=== PATIENT | female | born 1975 | race Caucasian/White ===

== ENCOUNTER 2017-01-26 16:40 | Emergency (ER) | payer OTHER | END 2017-01-26 18:30 | disposition home or self-care (01) | LOC: ER1 16:40 | DX: S61.451A Open bite of right hand, initial encounter (principal); W50.3XXA Accidental bite by another person, initial encounter; Y93.F9 Activity, other caregiving; Y99.0 Civilian activity done for income or pay; Z79.899 Other long term (current) drug therapy | CPT/HCPCS: 36415; 80074; 86706; 90471; 90715; 99283 ==

== ENCOUNTER 2020-09-15 18:44 | Inpatient (IN) | payer OTHER ==
[~2020-09-15] VITALS: Ht 172.7 cm; Wt 95.3 kg
[~2020-09-15 18:44] MED LIST: NAPROSYN500 MG PO
[2020-09-15 19:36] LABS: HEMOGLOBIN 13.4 gm/dl (12.3-15.3); RED BLOOD COUNT 4.99 M/UL (4.00-5.10); WHITE BLOOD COUNT 9.3 K/UL (4.5-11.0)
[2020-09-15 20:20] LABS: BUN/CREATININE RATIO 31 (0-10)
[2020-09-15] MEDS ORDERED: BASAGLAR K100 UNIT/1 SQ (23:38)
[2020-09-15] MEDS ORDERED: LYRICA150 MG PO (23:38)
[2020-09-15] MEDS ORDERED: CYMBALTA60 MG PO (23:38)
[2020-09-17 02:19] LABS: HEMOGLOBIN 12.9 gm/dl (12.3-15.3); RED BLOOD COUNT 4.75 M/UL (4.00-5.10); WHITE BLOOD COUNT 9.3 K/UL (4.5-11.0)
[2020-09-17 02:59] LABS: BUN/CREATININE RATIO 27 (0-10)
--- NOTE | 2020-09-17 08:38 | NUR ---
SPOKE WITH DR KIRBY REGARDING PATIENT STATES SHE HAD SOME CHEST DISCOMFORT DURING THE NIGHT AND IS AVOIDING TAKING A DEEP BREATHE BECAUSE IT HURTS SO BAD. DILAUDID GIVEN FOR PAIN REQUESTED AND MD ORDERED ISORSOBIDE MONO 30 MG DAILY. MD STATES SHE WILL BE HERE SHORTLY TO SPEAK WITH THE PATIENT, PATIENT MADE AWARE. PATIENT STATES SHE IS NOT HAVING ANY CHEST DISCOMFORT AT THIS TIME BUT CONTINUES TO AVOID TAKING A DEEP BREATHE BECAUSE IT DOES HURT WHEN SHE DOES THIS. NO SIGNS OF DISTRESS AT THIS TIME WILL CONTINUE TO MONITOR.
[2020-09-17] MEDS ORDERED: ASPIRIN EC81 MG PO (10:12)
[2020-09-17] MEDS ORDERED: ATORVASTATIN CA20 MG PO (10:12)
[2020-09-17] MEDS ORDERED: IMDUR ER TAB 3030 MG PO (10:12)
[2020-09-17] MEDS ORDERED: LOPRESSOR 25 MG25 MG PO (10:12)
[2020-09-17] MEDS ORDERED: BRILINTA 90 MG90 MG PO (10:12)
== END 2020-09-17 12:08 | disposition home or self-care (01) | DRG 247 ==
LOC: ER1 18:44 → CDU 21:12 → PROG CARE 09-16 12:13
PROVIDERS: Family Medicine; Physician Assistant; ADMIT Internal Medicine
PROC: B24BZZZ Ultrasonography of Heart with Aorta (ICD-10-PCS; 2020-09-16)
PROC: 027034Z Dilation of Coronary Artery, One Artery with Drug-eluting Intraluminal Device, Percutaneous Approach (ICD-10-PCS; principal; 2020-09-17)
PROC: B2111ZZ Fluoroscopy of Multiple Coronary Arteries using Low Osmolar Contrast (ICD-10-PCS; 2020-09-17)
PROC: 4A0335C Measurement of Arterial Flow, Coronary, Percutaneous Approach (ICD-10-PCS; 2020-09-17)
DX: I21.4 Non-ST elevation (NSTEMI) myocardial infarction (principal); F41.9 Anxiety disorder, unspecified; E11.9 Type 2 diabetes mellitus without complications; Z20.822 Contact with and (suspected) exposure to COVID-19; I25.110 Atherosclerotic heart disease of native coronary artery with unstable angina pectoris; I10 Essential (primary) hypertension; E78.5 Hyperlipidemia, unspecified; Z82.49 Family history of ischemic heart disease and other diseases of the circulatory system; Z79.4 Long term (current) use of insulin; Z98.84 Bariatric surgery status; Z79.899 Other long term (current) drug therapy
CPT/HCPCS: ECHO; 36415; 71045; 71046; 80048; 80053; 80061; 82550; 82553; 82962; 83874; 84484; 84703; 85025; 85347; 85610; 85730; 93005; 93306; 96365; 96366; 99152; 99153; 99285; C1725; C1769; C1874; C1887; C9600; J1170; J1644; J2250; J2270; J2405; J3010; J3246; J7030; J7040; Q9967; U0002

== ENCOUNTER → 2021-02-04 | Outpatient (CLI) | payer OTHER ==
[~2021-02-04] MED LIST changes: +ASPIRIN EC81 MG PO; +ATORVASTATIN CA20 MG PO; +BASAGLAR K100 UNIT/1 SQ; +BRILINTA 90 MG90 MG PO; +CYMBALTA60 MG PO; +IMDUR ER TAB 3030 MG PO; +LOPRESSOR 25 MG25 MG PO; +LYRICA150 MG PO
== END ==
LOC: ECHO 12-26 12:00 → HEART 5 15:30
DX: I25.10 Atherosclerotic heart disease of native coronary artery without angina pectoris (principal); I25.2 Old myocardial infarction; I07.1 Rheumatic tricuspid insufficiency; Z98.61 Coronary angioplasty status

== ENCOUNTER → 2021-04-09 | Outpatient (CLI) | payer OTHER | LOC: HEART 5 04-06 11:30 | DX: R07.9 Chest pain, unspecified (principal) ==

== ENCOUNTER → 2022-02-02 | Outpatient (CLI) | payer BC, OTHER | LOC: HEART 5 13:14 | DX: R07.9 Chest pain, unspecified (principal); R00.2 Palpitations ==

== ENCOUNTER → 2022-03-10 | Outpatient (CLI) | payer BC, OTHER | LOC: HEART 5 08:30 → NM 09:08 → HEART 5 03-17 10:30 | DX: I25.10 Atherosclerotic heart disease of native coronary artery without angina pectoris (principal); I21.9 Acute myocardial infarction, unspecified; R07.9 Chest pain, unspecified; Z98.61 Coronary angioplasty status | CPT/HCPCS: 78452; 93017; A9502; J2785 ==

== ENCOUNTER 2022-03-24 06:42 | Outpatient (CLI) | payer BC, OTHER ==
[~2022-03-24] VITALS: Ht 172.7 cm; Wt 99.8 kg
[2022-03-24] MEDS ORDERED: BUSPIRONE HCL15 MG PO (07:25)
[2022-03-24] MEDS ORDERED: FARXIGA10 MG PO (07:26)
[2022-03-24 07:28] LABS: HEMOGLOBIN 13.8 gm/dl (12.3-15.3); RED BLOOD COUNT 5.14 M/UL (4.00-5.10); WHITE BLOOD COUNT 7.3 K/UL (4.5-11.0)
[2022-03-24] MEDS ORDERED: NITROSTAT 0.40.4 MG SL (07:28)
[2022-03-24] MEDS ORDERED: VISTARIL50 MG PO (07:30)
[2022-03-24] MEDS ORDERED: BASAGLAR K100 UNIT/1 SC (07:33)
[2022-03-24 08:18] LABS: BUN/CREATININE RATIO 33 (0-10)
[2022-03-25 01:44] LABS: HEMOGLOBIN 13.1 gm/dl (12.3-15.3); RED BLOOD COUNT 4.79 M/UL (4.00-5.10); WHITE BLOOD COUNT 6.8 K/UL (4.5-11.0)
[2022-03-25 02:04] LABS: BUN/CREATININE RATIO 22 (0-10)
[2022-03-25] MEDS ORDERED: ASPIRIN EC81 MG PO (09:28)
== END 2022-03-25 10:40 | disposition home or self-care (01) ==
LOC: CATH 06:42 → PROG CARE 12:08 → CATH 03-25 10:40
PROVIDERS: Internal Medicine Cardiovascular Disease
DX: I25.118 Atherosclerotic heart disease of native coronary artery with other forms of angina pectoris (principal); I25.2 Old myocardial infarction; I10 Essential (primary) hypertension; E78.5 Hyperlipidemia, unspecified; E11.9 Type 2 diabetes mellitus without complications; Z95.5 Presence of coronary angioplasty implant and graft
CPT/HCPCS: 36415; 71045; 80048; 82962; 85025; 85347; 85610; 92920; 93005; 99152; 99153; C1725; C1769; C1874; C1887; C1894; J1644; J2250; J3010; J3246; J7040; Q9967